=== PATIENT | male | born 1985 ===

== ENCOUNTER → 2021-02-10 | Emergency (ER) | payer OTHER ==
[~2021-02-10] VITALS: Ht 162.6 cm; Wt 93.4 kg
[2021-02-10 16:33] VITALS: BP 154/89
== END | disposition left against medical advice (07) ==
LOC: ER 16:09
DX: R07.89 Other chest pain (principal); Z53.21 Procedure and treatment not carried out due to patient leaving prior to being seen by health care provider
CPT/HCPCS: 93005